=== PATIENT | male | born 1990 | race Caucasian/White ===

== ENCOUNTER 2017-10-26 03:46 | Inpatient (IN) | payer OTHER, BC ==
[2017-10-26] VITALS (18 sets, daily range): BP systolic 105–140; BP diastolic 59–79; PULSE 76–111; RESP 16–26; TEMP 98–100.9; O2SAT 97–100
[~2017-10-26] VITALS: Ht 177.8 cm; Wt 76.2 kg
[2017-10-26] MEDS ORDERED: MIDAZOLAM 100 MG/100 ML INJ 100 ML ONE (03:56)
[2017-10-26] MEDS ORDERED: fentaNYL DRIP 250 ML ONE (03:57)
[2017-10-26] MEDS ORDERED: ROCURONIUM INJ 50 MG/5 ML VIAL ONE (04:04)
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
[2017-10-26 04:19] LABS: AUTOMATED NEUTROPHIL # 5.4 TH/MM3 (1.8-7.7); BASOPHIL % 0.3 % (0.0-2.0); EOSINOPHIL % 0.4 % (0.0-4.0); HEMATOCRIT 41.7 % (39.0-51.0); LYMPH % 46.2 % (9.0-44.0); LYMPHOCYTE # 5.4 TH/MM3 (1.0-4.8); MEAN CELL VOLUME 87.9 FL (80.0-100.0); MEAN CORPUSCULAR HEMOGLOBIN 29.5 PG (27.0-34.0); MEAN CORPUSCULAR HGB CONC 33.6 % (32.0-36.0); MEAN PLATELET VOLUME 7.4 FL (7.0-11.0); MONO % 7.4 % (0.0-8.0); MONOCYTE # 0.9 TH/MM3 (0-0.9); NEUT % 45.7 % (16.0-70.0); PLATELET COUNT 281 TH/MM3 (150-450); RED BLOOD COUNT 4.75 MIL/MM3 (4.50-5.90); RED CELL DISTRIBUTION WIDTH 13.3 % (11.6-17.2); WHITE BLOOD COUNT 11.8 TH/MM3 (4.0-11.0)
[2017-10-26 04:29] LABS: INTERNATIONAL NORMALIZED RATIO 1.1 RATIO; PROTHROMBIN TIME - PATIENT 11.3 SEC (9.8-11.6)
[2017-10-26] MEDS ORDERED: IOHEXOL 350 MG/ML 10 ML VIAL (for RAD DIAG) IVCONTRAST ONE (04:36)
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
[2017-10-26] MEDS ORDERED: PROPOFOL 500 MG/50 ML INJ 50 ML ONE (05:14)
[2017-10-26] MEDS: SODIUM CHLOR 0.9% 1000 ML INJ 1,000 ML IV SCH ×3 (05:17→20:55)
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
[2017-10-26] MEDS ORDERED: SENNOSIDES 8.6 MG TAB PO PRN (05:30)
[2017-10-26] MEDS ORDERED: LACTULOSE SYRUP 20 GM/30 ML CUP PO PRN (05:30)
[2017-10-26] MEDS ORDERED: PROPOFOL 1000 MG/100 ML INJ 100 ML IV PRN (05:30)
[2017-10-26] MEDS ORDERED: CHLORHEXIDINE GLUCONATE 2 % 1 PACK (2 CLOTHS) TOP PRN (05:30)
[2017-10-26] MEDS ORDERED: MISCELLANEOUS NURSING INFORMATION XX SCH (05:30)
[2017-10-26] MEDS ORDERED: [UNRECOGNIZED DRUG - REMARK] SCH (05:30)
[2017-10-26] MEDS ORDERED: BISACODYL 10 MG SUPP RECTAL PRN (05:30)
[2017-10-26] MEDS ORDERED: MAGNESIUM HYDROXIDE SUSP 30 ML CUP PO PRN (05:30)
[2017-10-26] MEDS ORDERED: fentaNYL DRIP 250 ML IV PRN (05:30)
[2017-10-26 05:32] LABS: BANDS 2 % (0-6); BASOPHILS 1 % (0-2); LYMPHOCYTES 47 % (9-44); METAMYELOCYTES 2 % (0-1); MONOCYTES 6 % (0-8); NEUTROPHIL # MANUAL DIFF 5.4 TH/MM3 (1.8-7.7); POLYS (SEG NEUTROPHILS) 42 % (16-70)
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
[2017-10-26] MEDS: PROPOFOL 1000 MG/100 ML IV PRN ×2 (05:46→22:13)
[2017-10-26] MEDS: fentaNYL 2,500 MCG/NS 250 ML IV PRN ×3 (05:46→23:14)
[2017-10-26] MEDS ORDERED: POTASSIUM CHLORIDE 20 MEQ PWD PACKET PO PRN (06:30)
[2017-10-26] MEDS ORDERED: POTASSIUM PHOSPHATE MONOBASIC 500 MG TAB PO PRN (06:30)
[2017-10-26] MEDS ORDERED: MAGNESIUM OXIDE 400 MG TAB PO PRN (06:30)
[2017-10-26] MEDS ORDERED: MAGNESIUM SULFATE INJ 2 GM in SODIUM CHLORIDE 0.9% INJ 96 ML IV PRN (06:30)
[2017-10-26] MEDS ORDERED: SODIUM PHOSPHATE INJ 30 MMOL in SODIUM CHLOR 0.9% 250 ML INJ 240 ML IV PRN (06:30)
[2017-10-26] MEDS ORDERED: POTASSIUM PHOSPHATE MONOBASIC 500 MG TAB PO/TUBE PRN (06:30)
[2017-10-26] MEDS ORDERED: POTASSIUM CHLOR 20 MEQ PREMIX 100 ML IV PRN ×2 (06:30)
[2017-10-26] MEDS ORDERED: MAGNESIUM SULFATE INJ 4 GM in SODIUM CHLORIDE 0.9% INJ 92 ML IV PRN (06:30)
[2017-10-26] MEDS ORDERED: POTASSIUM CHLOR 40 MEQ PREMIX 100 ML IV PRN ×2 (06:30)
[2017-10-26] MEDS ORDERED: POTASSIUM PHOSPHATE INJ 30 MMOL in SODIUM CHLOR 0.9% 250 ML INJ 250 ML IV PRN (06:30)
--- NOTE | 2017-10-26 06:43 | RADRPT ---
EXAM DATE/TIME: 10/26/2017 04:36 [facility] COMPARISON: CHEST SINGLE AP, October 26, 2017, 3:49. INDICATIONS : Status post chest tube left side. MEDICAL HISTORY : None. SURGICAL HISTORY : None. ENCOUNTER: Initial ACUITY: 1 day PAIN SCORE: Non-responsive. LOCATION: Left chest FINDINGS: A single view of the chest demonstrates diffuse airspace disease probably representing pulmonary pare nchymal contusions, most prominent in the apices. Bilateral thoracostomy tubes with no obvious pneumo thorax. Deep tissue emphysematous changes about both hemithoraces. Left-sided rib fractures are again noted. I'd size is normal. Endotracheal tube appropriately positioned above the soraya with interval placement of a nasogastric tube which traverses the GE junction and the tip projects over the expect ed location of the gastric lumen. CONCLUSION: 1. Bilateral thoracostomy tubes without pneumothorax. 2. Bilateral pulmonary parenchymal airspace disease, most prominent in the apices probably representi ng pulmonary parenchymal contusion or aspiration. 3. Left-sided rib fractures. Tolu Bashir MD on October 26, 2017 at 6:40 Board Certified Radiologist. This report was verified electronically.
[2017-10-26] MEDS ORDERED: RESP: ALBUTEROL 2.5 MG/IPRATROPIUM 0.5 MG NEB (PRN) NEB (06:45)
[2017-10-26] MEDS: DOCUSATE SODIUM 50 MG/SENNA 8.6 MG TAB PO SCH ×2 (08:27→21:40)
[2017-10-26] MEDS: CHLORHEXIDINE 0.12% (ORAL KIT) 15 ML CUP MT SCH ×2 (08:27→20:55)
[2017-10-26] MEDS: FAMOTIDINE 20 MG/2 ML VIAL IV PUSH SCH ×2 (08:28→21:40)
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
[2017-10-26] MEDS: RESP: ALBUTEROL 2.5 MG/IPRATROPIUM 0.5 MG NEB (SCH) NEB ×3 (08:50→19:49)
[2017-10-26 11:04] LABS: MAGNESIUM 1.9 MG/DL (1.5-2.5); PHOSPHORUS 3.8 MG/DL (2.5-4.9)
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
[2017-10-26] MEDS: ACETAMINOPHEN 325 MG TAB PO PRN ×2 (16:45→23:13)
[2017-10-26] MEDS: CHLORHEXIDINE GLUCONATE 2 % 1 PACK (2 CLOTHS) TOP SCH (20:55)
[2017-10-27] VITALS (17 sets, daily range): BP systolic 120–137; BP diastolic 60–75; PULSE 76–125; RESP 14–18; TEMP 98.6–101.1; O2SAT 95–100
[2017-10-27] MEDS: RESP: ALBUTEROL 2.5 MG/IPRATROPIUM 0.5 MG NEB (SCH) NEB ×4 (02:59→20:33)
[2017-10-27 04:35] LABS: AUTOMATED NEUTROPHIL # 7.7 TH/MM3 (1.8-7.7); BASOPHIL % 0.2 % (0.0-2.0); EOSINOPHIL % 0.1 % (0.0-4.0); HEMATOCRIT 34.2 % (39.0-51.0); HEMOGLOBIN 11.5 GM/DL (13.0-17.0); LYMPH % 17.7 % (9.0-44.0); LYMPHOCYTE # 1.9 TH/MM3 (1.0-4.8); MEAN CELL VOLUME 88.1 FL (80.0-100.0); MEAN CORPUSCULAR HEMOGLOBIN 29.6 PG (27.0-34.0); MEAN CORPUSCULAR HGB CONC 33.6 % (32.0-36.0); MEAN PLATELET VOLUME 7.9 FL (7.0-11.0); MONO % 10.6 % (0.0-8.0); MONOCYTE # 1.1 TH/MM3 (0-0.9); NEUT % 71.4 % (16.0-70.0); PLATELET COUNT 172 TH/MM3 (150-450); RED BLOOD COUNT 3.88 MIL/MM3 (4.50-5.90); RED CELL DISTRIBUTION WIDTH 13.3 % (11.6-17.2); WHITE BLOOD COUNT 10.8 TH/MM3 (4.0-11.0)
--- NOTE | 2017-10-27 04:44 | RADRPT ---
EXAM DATE/TIME: 10/27/2017 02:23 [facility] COMPARISON: CHEST SINGLE AP, October 26, 2017, 4:36. INDICATIONS : Short of breath. MEDICAL HISTORY : None. SURGICAL HISTORY : None. ENCOUNTER: Subsequent ACUITY: 1 week PAIN SCORE: 0/10 LOCATION: Bilateral chest FINDINGS: ET tube tip well above the soraya. Gastric tube tip projects within the stomach. Bilateral chest tu be stable position. Interval resolution of patchy infiltrates in the left upper lung. There is a ne w segmental area of consolidation in the left lower lung. The right lung is clear. CONCLUSION: Resolved left upper lobe infiltrates. No left lower lobe consolidation. Madan De Luna MD on October 27, 2017 at 4:40 Board Certified Radiologist. This report was verified electronically.
[2017-10-27 04:59] LABS: BICARBONATE 25.8 MEQ/L (21.0-32.0); CALCIUM 8.2 MG/DL (8.5-10.1); CREATININE 1.04 MG/DL (0.60-1.30)
[2017-10-27] MEDS: PROPOFOL 1000 MG/100 ML IV PRN (06:28)
[2017-10-27] MEDS: SODIUM CHLOR 0.9% 1000 ML INJ 1,000 ML IV SCH (06:31)
[2017-10-27] MEDS: FAMOTIDINE 20 MG/2 ML VIAL IV PUSH SCH ×2 (09:44→20:23)
[2017-10-27] MEDS: DOCUSATE SODIUM 50 MG/SENNA 8.6 MG TAB PO SCH ×2 (09:44→22:05)
[2017-10-27] MEDS: CHLORHEXIDINE 0.12% (ORAL KIT) 15 ML CUP MT SCH (09:45)
[2017-10-27] MEDS ORDERED: oxyCODONE/ACETAMINOPHEN 5 MG/325 MG TAB PO PRN (10:45)
[2017-10-27] MEDS: LIDOCAINE HCL 5% PATCH T-DERMAL SCH (11:25)
[2017-10-27] MEDS: oxyCODONE/ACETAMINOPHEN 10 MG/325 MG TAB PO PRN ×3 (11:25→22:05)
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
[2017-10-27] MEDS: MORPHINE SULFATE 2 MG/ML INJ IV PUSH PRN ×3 (11:58→20:23)
[2017-10-27] MEDS: METHOCARBAMOL 500 MG TAB PO SCH ×2 (13:44→22:05)
[2017-10-27] MEDS: ENOXAPARIN SODIUM 40 MG/0.4 ML SYRINGE SQ SCH (13:44)
[2017-10-27] MEDS: CALCIUM CARBONATE 500 MG CHEWABLE TAB PO PRN (18:25)
--- NOTE | 2017-10-27 21:16 | EKG ---
Date Performed: 10/27/2017 Time Performed: 02:37:10 PTAGE: 26 years EKG: CONSIDER ACUTE ST ELEVATION [place] Sinus rhythm . Short IN interval Lateral ST elevation, CONSIDER ACUTE INFARCT Inferior T wave changes are nonspeci fic Abnormal ECG NO PREVIOUS TRACING DOCTOR: Mckenzie Encinas Interpretating Date/Time 10/27/2017 21:14:35
[2017-10-28] VITALS (10 sets, daily range): BP systolic 125–150; BP diastolic 69–75; PULSE 88–108; RESP 14–18; TEMP 96.7–99.7; O2SAT 92–97
[2017-10-28] MEDS: MORPHINE SULFATE 2 MG/ML INJ IV PUSH PRN ×5 (00:11→22:38)
[2017-10-28] MEDS: oxyCODONE/ACETAMINOPHEN 10 MG/325 MG TAB PO PRN ×2 (02:21→05:57)
[2017-10-28] MEDS: RESP: ALBUTEROL 2.5 MG/IPRATROPIUM 0.5 MG NEB (SCH) NEB ×3 (02:44→17:10)
[2017-10-28] MEDS: CHLORHEXIDINE GLUCONATE 2 % 1 PACK (2 CLOTHS) TOP SCH (04:00)
[2017-10-28 04:39] LABS: AUTOMATED NEUTROPHIL # 6.4 TH/MM3 (1.8-7.7); BASOPHIL % 0.2 % (0.0-2.0); EOSINOPHIL % 0.1 % (0.0-4.0); HEMATOCRIT 31.6 % (39.0-51.0); HEMOGLOBIN 10.7 GM/DL (13.0-17.0); LYMPH % 15.8 % (9.0-44.0); LYMPHOCYTE # 1.4 TH/MM3 (1.0-4.8); MEAN CELL VOLUME 86.8 FL (80.0-100.0); MEAN CORPUSCULAR HEMOGLOBIN 29.4 PG (27.0-34.0); MEAN CORPUSCULAR HGB CONC 33.8 % (32.0-36.0); MEAN PLATELET VOLUME 7.5 FL (7.0-11.0); MONO % 9.3 % (0.0-8.0); MONOCYTE # 0.8 TH/MM3 (0-0.9); NEUT % 74.6 % (16.0-70.0); PLATELET COUNT 159 TH/MM3 (150-450); RED BLOOD COUNT 3.65 MIL/MM3 (4.50-5.90); RED CELL DISTRIBUTION WIDTH 13.2 % (11.6-17.2); WHITE BLOOD COUNT 8.6 TH/MM3 (4.0-11.0)
[2017-10-28] MEDS: METHOCARBAMOL 500 MG TAB PO SCH ×3 (05:05→19:59)
[2017-10-28 05:09] LABS: ALBUMIN 2.8 GM/DL (3.4-5.0); ALKALINE PHOSPHATASE 35 U/L (45-117); ALT (GPT) 40 U/L (12-78); AST (GOT) 79 U/L (15-37); BICARBONATE 27.1 MEQ/L (21.0-32.0); BLOOD UREA NITROGEN 6 MG/DL (7-18); CALCIUM 8.1 MG/DL (8.5-10.1); CHLORIDE 105 MEQ/L (98-107); CREATININE 0.84 MG/DL (0.60-1.30); GLOMERULAR FILTRATION RATE 110 ML/MIN (>89); GLUCOSE,RANDOM 118 MG/DL (74-106); SODIUM (NA) 139 MEQ/L (136-145); TOTAL BILIRUBIN ADULT 1.2 MG/DL (0.2-1.0); TOTAL PROTEIN 6.2 GM/DL (6.4-8.2)
--- NOTE | 2017-10-28 06:36 | RADRPT ---
EXAM DATE/TIME: 10/28/2017 04:27 [facility] COMPARISON: CHEST SINGLE AP, October 27, 2017, 2:23. INDICATIONS : Follow up trauma. Short of breath. MEDICAL HISTORY : None. SURGICAL HISTORY : None. ENCOUNTER: Subsequent ACUITY: 3 days PAIN SCORE: Non-responsive. LOCATION: Bilateral chest FINDINGS: Interval extubation and removal of gastric tube. Bilateral chest drainage tubes stable in position. No evidence pneumothorax. Patchy areas of consolidation left mid and lower lung had increased in si ze when compared to prior. There is also thickening of the apical pleura suggesting layering pleural effusion. Multiple left rib fractures. CONCLUSION: Increasing consolidation in the left mid and lower lung. Probable pleural effusion layering up to th e left pulmonary apex. No evidence of pneumothorax. Madan De Luna MD on October 28, 2017 at 6:33 Board Certified Radiologist. This report was verified electronically.
[2017-10-28] MEDS: ACETAMINOPHEN 1000 MG/100 ML 100 ML IV SCH ×3 (08:18→19:59)
[2017-10-28] MEDS: DOCUSATE SODIUM 50 MG/SENNA 8.6 MG TAB PO SCH ×2 (08:19→19:59)
[2017-10-28] MEDS: FAMOTIDINE 20 MG/2 ML VIAL IV PUSH SCH ×2 (08:19→19:59)
[2017-10-28] MEDS: fentaNYL 50 MCG/HR PATCH T-DERMAL SCH (08:19)
[2017-10-28] MEDS: LIDOCAINE HCL 5% PATCH T-DERMAL SCH (09:38)
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
[2017-10-28] MEDS: ENOXAPARIN SODIUM 40 MG/0.4 ML SYRINGE SQ SCH (12:20)
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
[2017-10-28] MEDS: SODIUM CHLOR 0.9% 1000 ML INJ 1,000 ML IV SCH (20:06)
[2017-10-29] VITALS (7 sets, daily range): BP systolic 125–137; BP diastolic 59–77; PULSE 86–96; RESP 16–18; TEMP 97.7–98.7; O2SAT 93–98
[2017-10-29] MEDS: RESP: ALBUTEROL 2.5 MG/IPRATROPIUM 0.5 MG NEB (SCH) NEB ×3 (00:24→20:49)
[2017-10-29] MEDS: ACETAMINOPHEN 1000 MG/100 ML 100 ML IV SCH (00:37)
[2017-10-29] MEDS: SODIUM CHLOR 0.9% 1000 ML INJ 1,000 ML IV SCH (03:17)
[2017-10-29] MEDS: MORPHINE SULFATE 2 MG/ML INJ IV PUSH PRN ×6 (03:26→22:02)
[2017-10-29] MEDS: CHLORHEXIDINE GLUCONATE 2 % 1 PACK (2 CLOTHS) TOP SCH (04:00)
[2017-10-29] MEDS: METHOCARBAMOL 500 MG TAB PO SCH ×3 (05:45→20:23)
--- NOTE | 2017-10-29 06:07 | RADRPT ---
EXAM DATE/TIME: 10/29/2017 04:57 [facility] COMPARISON: CHEST SINGLE AP, October 28, 2017, 4:27. INDICATIONS : Short of breath. MEDICAL HISTORY : None. SURGICAL HISTORY : None. ENCOUNTER: Subsequent ACUITY: 4 - 6 days PAIN SCORE: 0/10 LOCATION: Bilateral chest FINDINGS: Bilateral chest tubes remain projected at the apices. The right lung is clear. Prominent consolidat ion in the left mid and lower lung and local pleural thickening on the left side, stable from prior. No pneumothorax seen on either side. CONCLUSION: Persistent left mid and lower lung consolidation. Bilateral chest tubes stable in position. Madan De Luna MD on October 29, 2017 at 6:04 Board Certified Radiologist. This report was verified electronically.
[2017-10-29] MEDS: LIDOCAINE HCL 5% PATCH T-DERMAL SCH (07:35)
[2017-10-29] MEDS: DOCUSATE SODIUM 50 MG/SENNA 8.6 MG TAB PO SCH ×2 (07:35→20:23)
[2017-10-29] MEDS: ENOXAPARIN SODIUM 40 MG/0.4 ML SYRINGE SQ SCH (11:09)
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
[2017-10-30] VITALS (7 sets, daily range): BP systolic 119–140; BP diastolic 56–74; PULSE 76–96; RESP 17–19; TEMP 97.9–99.1; O2SAT 92–99
[2017-10-30] MEDS: MORPHINE SULFATE 2 MG/ML INJ IV PUSH PRN ×6 (00:48→19:49)
[2017-10-30] MEDS: CHLORHEXIDINE GLUCONATE 2 % 1 PACK (2 CLOTHS) TOP SCH (04:00)
[2017-10-30] MEDS: RESP: ALBUTEROL 2.5 MG/IPRATROPIUM 0.5 MG NEB (SCH) NEB ×2 (04:27→09:29)
[2017-10-30 04:52] LABS: AUTOMATED NEUTROPHIL # 5.9 TH/MM3 (1.8-7.7); BASOPHIL % 0.3 % (0.0-2.0); EOSINOPHIL # 0.1 TH/MM3 (0-0.4); EOSINOPHIL % 0.8 % (0.0-4.0); HEMATOCRIT 33.4 % (39.0-51.0); HEMOGLOBIN 11.5 GM/DL (13.0-17.0); LYMPH % 20.3 % (9.0-44.0); LYMPHOCYTE # 1.7 TH/MM3 (1.0-4.8); MEAN CELL VOLUME 87.5 FL (80.0-100.0); MEAN CORPUSCULAR HEMOGLOBIN 30.2 PG (27.0-34.0); MEAN CORPUSCULAR HGB CONC 34.5 % (32.0-36.0); MEAN PLATELET VOLUME 7.4 FL (7.0-11.0); MONO % 9.1 % (0.0-8.0); MONOCYTE # 0.8 TH/MM3 (0-0.9); NEUT % 69.5 % (16.0-70.0); PLATELET COUNT 205 TH/MM3 (150-450); RED BLOOD COUNT 3.82 MIL/MM3 (4.50-5.90); RED CELL DISTRIBUTION WIDTH 13.1 % (11.6-17.2); WHITE BLOOD COUNT 8.4 TH/MM3 (4.0-11.0)
[2017-10-30 05:14] LABS: CALCIUM 8.4 MG/DL (8.5-10.1); CREATININE 0.74 MG/DL (0.60-1.30)
[2017-10-30] MEDS: METHOCARBAMOL 500 MG TAB PO SCH ×3 (06:09→19:48)
--- NOTE | 2017-10-30 07:14 | RADRPT ---
EXAM DATE/TIME: 10/30/2017 05:59 [facility] COMPARISON: CHEST SINGLE AP, October 29, 2017, 4:57. CT THORAX W CONTRAST, October 26, 2017, 4:14. INDICATIONS : Chest pain, short of breath, evaluate bilateral chest tubes MEDICAL HISTORY : None. SURGICAL HISTORY : bilateral chest tubes ENCOUNTER: Subsequent ACUITY: 3 days PAIN SCORE: 10/10 LOCATION: Bilateral chest FINDINGS: Portable upright expiratory view of the chest demonstrates a normal-sized cardiac silhouette. Large b ore bilateral chest tubes remain present in the apices of the hemithoraces. There is a small left api [place] pneumothorax. No right pneumothorax is seen. There is mild patchy airspace opacity in the right m id and lower lung zone. There is moderate to severe opacity in the left mid and lower lung zone. Ther e are stable left rib fractures. CONCLUSION: 1. There is a small left pneumothorax with left chest tube in place. 2. Right chest tube is present and no pneumothorax is seen. 3. Bilateral lower lung zone airspace consolidation, left much greater than right. This finding is st able. Cole Alonso MD on October 30, 2017 at 7:10 Board Certified Radiologist. This report was verified electronically.
[2017-10-30] MEDS: KETOROLAC TROMETHAMINE 30 MG/ML (IVP) VIAL IV PUSH SCH ×3 (08:11→21:19)
[2017-10-30] MEDS: DOCUSATE SODIUM 50 MG/SENNA 8.6 MG TAB PO SCH ×2 (08:11→19:49)
[2017-10-30] MEDS: LIDOCAINE HCL 5% PATCH T-DERMAL SCH (08:11)
[2017-10-30] MEDS: ENOXAPARIN SODIUM 30 MG/0.3 ML SYRINGE SQ SCH ×2 (08:12→19:50)
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
[2017-10-30] MEDS ORDERED: LACTULOSE SYRUP 20 GM/30 ML CUP PO ONE (19:45)
[2017-10-30] MEDS: traZODone HCL 100 MG TAB PO SCH (19:49)
[2017-10-31] VITALS (7 sets, daily range): BP systolic 117–138; BP diastolic 58–61; PULSE 78–86; RESP 17–18; TEMP 96.8–99.4; O2SAT 93–98
[2017-10-31] MEDS: MORPHINE SULFATE 2 MG/ML INJ IV PUSH PRN ×6 (00:19→23:48)
[2017-10-31] MEDS: KETOROLAC TROMETHAMINE 30 MG/ML (IVP) VIAL IV PUSH SCH ×4 (03:08→20:16)
[2017-10-31] MEDS: CHLORHEXIDINE GLUCONATE 2 % 1 PACK (2 CLOTHS) TOP SCH (03:09)
[2017-10-31] MEDS: METHOCARBAMOL 500 MG TAB PO SCH ×3 (05:29→22:01)
--- NOTE | 2017-10-31 07:03 | RADRPT ---
EXAM DATE/TIME: 10/31/2017 06:08 [facility] COMPARISON: CHEST SINGLE AP, October 30, 2017, 5:59. INDICATIONS : Short of breath, post chest tube removal right side MEDICAL HISTORY : pneumothorax SURGICAL HISTORY : chest tube ENCOUNTER: Subsequent ACUITY: 4 - 6 days PAIN SCORE: 9/10 LOCATION: Bilateral chest FINDINGS: Single AP erect expiratory view of the pelvis the chest was obtained and demonstrates interval remova l of the previously noted right-sided chest tube. There is a small right apical pneumothorax. This me asures 6 mm in size. The left-sided chest tube remains in place. The left apical pneumothorax has dec reased in size and now measures approximately 1.2 cm. There is hazy opacity remaining in the left eddi g. The heart size is mildly prominent. The bony thorax is intact. CONCLUSION: 1. Interval removal of right-sided chest tube a small right apical pneumothorax now identified. 2. Left-sided chest tube remains in place with interval decrease in the size of the left pneumothorax with small apical residual. 3. Hazy opacity remains in the left lung. Virgilio Rivera MD on October 31, 2017 at 6:58 Board Certified Radiologist. This report was verified electronically.
[2017-10-31] MEDS: REMOVE OLD DURAGESIC (FENTANYL) PATCH T-DERMAL SCH (08:00)
[2017-10-31] MEDS: DOCUSATE SODIUM 50 MG/SENNA 8.6 MG TAB PO SCH ×2 (09:42→20:12)
[2017-10-31] MEDS: ENOXAPARIN SODIUM 30 MG/0.3 ML SYRINGE SQ SCH ×2 (09:43→20:12)
[2017-10-31] MEDS: LIDOCAINE HCL 5% PATCH T-DERMAL SCH (09:58)
[2017-10-31] MEDS: fentaNYL 50 MCG/HR PATCH T-DERMAL SCH (09:59)
--- NOTE | 2017-10-31 14:44 | RADRPT ---
EXAM DATE/TIME: 10/31/2017 14:09 [facility] COMPARISON: CHEST SINGLE AP, October 31, 2017, 6:08. INDICATIONS : Evaluate for pneumothorax. MEDICAL HISTORY : pneumothorax or SURGICAL HISTORY : chest tube ENCOUNTER: Subsequent ACUITY: 4 - 6 days PAIN SCORE: 8/10 LOCATION: Bilateral chest FINDINGS: Large bore chest tube on the left. Minimal consolidative changes left base. No residual pneumothora x on the right. CONCLUSION: No residual pneumothorax Michael Miller MD FACR on October 31, 2017 at 14:40 Board Certified Radiologist. This report was verified electronically.
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
[2017-10-31] MEDS: traZODone HCL 100 MG TAB PO SCH (20:12)
[2017-11-01] MEDS: CHLORHEXIDINE GLUCONATE 2 % 1 PACK (2 CLOTHS) TOP SCH (02:23)
[2017-11-01] MEDS: KETOROLAC TROMETHAMINE 30 MG/ML (IVP) VIAL IV PUSH SCH ×4 (02:23→19:50)
[2017-11-01 04:00] VITALS: BP 124/52; PULSE 82; RESP 18; TEMP 98; O2SAT 94
[2017-11-01] MEDS: METHOCARBAMOL 500 MG TAB PO SCH ×3 (06:42→22:50)
[2017-11-01 08:00] VITALS: BP 124/69; PULSE 74; RESP 16; TEMP 97.9; O2SAT 96
[2017-11-01] MEDS: DOCUSATE SODIUM 50 MG/SENNA 8.6 MG TAB PO SCH ×2 (09:00→19:50)
[2017-11-01] MEDS: ENOXAPARIN SODIUM 30 MG/0.3 ML SYRINGE SQ SCH ×2 (09:24→19:50)
[2017-11-01] MEDS: LIDOCAINE HCL 5% PATCH T-DERMAL SCH (09:25)
[2017-11-01 12:00] VITALS: BP 124/57; PULSE 88; RESP 16; TEMP 97.5; O2SAT 92
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
[2017-11-01 16:00] VITALS: BP 131/56; PULSE 83; RESP 16; TEMP 98.2; O2SAT 92
[2017-11-01] MEDS: traZODone HCL 100 MG TAB PO SCH (19:50)
[2017-11-01 20:00] VITALS: BP 123/57; PULSE 87; RESP 18; TEMP 99; O2SAT 92
[2017-11-02 00:18] VITALS: BP 113/56; PULSE 83; RESP 18; TEMP 98.2; O2SAT 96
[2017-11-02] MEDS: KETOROLAC TROMETHAMINE 30 MG/ML (IVP) VIAL IV PUSH SCH ×4 (02:00→19:32)
[2017-11-02] MEDS: CHLORHEXIDINE GLUCONATE 2 % 1 PACK (2 CLOTHS) TOP SCH (03:28)
[2017-11-02] MEDS: METHOCARBAMOL 500 MG TAB PO SCH ×3 (04:25→22:30)
--- NOTE | 2017-11-02 04:50 | RADRPT ---
EXAM DATE/TIME: 11/02/2017 04:15 [facility] COMPARISON: CHEST SINGLE AP, October 31, 2017, 14:09. INDICATIONS : Followup recent left pneumothorax. Patient has a chest tube.. MEDICAL HISTORY : None. SURGICAL HISTORY : None. ENCOUNTER: Subsequent ACUITY: 1 week PAIN SCORE: 7/10 LOCATION: Left chest FINDINGS: A single AP semierect view of the chest was obtained and again demonstrates the left-sided chest tube in place. There is a small left apical pneumothorax now present measuring up to approximately 9 mm i n height. Abnormal opacity remains in the left perihilar region and left lung base. There are multipl e left rib fractures. The heart size is mildly prominent. CONCLUSION: 1. There is a small left apical pneumothorax now identified measuring 9 mm. 2. The left-sided chest tube remains in place and there is abnormal opacity in the left perihilar reg ion left lung base without change. Virgilio Rivera MD on November 02, 2017 at 4:46 Board Certified Radiologist. This report was verified electronically.
[2017-11-02] MEDS ORDERED: MAGN30S PO (07:55)
[2017-11-02 08:00] VITALS: BP 109/61; PULSE 76; RESP 16; TEMP 98.1; O2SAT 95
[2017-11-02] MEDS: DOCUSATE SODIUM 50 MG/SENNA 8.6 MG TAB PO SCH ×2 (08:45→19:32)
[2017-11-02] MEDS: ENOXAPARIN SODIUM 30 MG/0.3 ML SYRINGE SQ SCH ×2 (08:46→19:31)
[2017-11-02] MEDS: LIDOCAINE HCL 5% PATCH T-DERMAL SCH (08:47)
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
[2017-11-02 12:00] VITALS: BP 120/58; PULSE 83; RESP 16; TEMP 98.3; O2SAT 95
[2017-11-02 16:00] VITALS: BP 125/56; PULSE 78; RESP 16; TEMP 98.5; O2SAT 98
[2017-11-02] MEDS: MORPHINE SULFATE 2 MG/ML INJ IV PUSH PRN ×2 (19:11→23:49)
[2017-11-02] MEDS: traZODone HCL 100 MG TAB PO SCH (19:31)
[2017-11-02 20:00] VITALS: BP 119/59; PULSE 82; RESP 18; TEMP 99.2; O2SAT 96
[2017-11-03] VITALS: BP 116/56; PULSE 69; RESP 18; TEMP 98.3; O2SAT 97
[2017-11-03] MEDS: KETOROLAC TROMETHAMINE 30 MG/ML (IVP) VIAL IV PUSH SCH ×4 (02:00→21:50)
[2017-11-03 03:46] LABS: AUTOMATED NEUTROPHIL # 4.3 TH/MM3 (1.8-7.7); BASOPHIL % 0.4 % (0.0-2.0); EOSINOPHIL # 0.3 TH/MM3 (0-0.4); EOSINOPHIL % 3.4 % (0.0-4.0); HEMATOCRIT 35.2 % (39.0-51.0); HEMOGLOBIN 11.9 GM/DL (13.0-17.0); LYMPH % 30.3 % (9.0-44.0); LYMPHOCYTE # 2.6 TH/MM3 (1.0-4.8); MEAN CELL VOLUME 86.1 FL (80.0-100.0); MEAN CORPUSCULAR HEMOGLOBIN 29.2 PG (27.0-34.0); MEAN CORPUSCULAR HGB CONC 33.9 % (32.0-36.0); MEAN PLATELET VOLUME 6.9 FL (7.0-11.0); MONO % 14.5 % (0.0-8.0); MONOCYTE # 1.2 TH/MM3 (0-0.9); NEUT % 51.4 % (16.0-70.0); PLATELET COUNT 392 TH/MM3 (150-450); RED BLOOD COUNT 4.09 MIL/MM3 (4.50-5.90); RED CELL DISTRIBUTION WIDTH 13.1 % (11.6-17.2); WHITE BLOOD COUNT 8.4 TH/MM3 (4.0-11.0)
[2017-11-03 04:33] LABS: BICARBONATE 29.6 MEQ/L (21.0-32.0); CALCIUM 8.6 MG/DL (8.5-10.1); CREATININE 1.03 MG/DL (0.60-1.30)
[2017-11-03] MEDS: METHOCARBAMOL 500 MG TAB PO SCH ×3 (04:57→21:49)
[2017-11-03] MEDS: MORPHINE SULFATE 2 MG/ML INJ IV PUSH PRN ×5 (05:59→23:42)
--- NOTE | 2017-11-03 06:29 | RADRPT ---
EXAM DATE/TIME: 11/03/2017 05:28 [facility] COMPARISON: CHEST SINGLE AP, November 02, 2017, 4:15. INDICATIONS : Pain left chest, evaluate left pneumothorax and chest tube MEDICAL HISTORY : pneumothorax SURGICAL HISTORY : chest tube ENCOUNTER: Subsequent ACUITY: 1 week PAIN SCORE: 7/10 LOCATION: Left chest FINDINGS: A single view of the chest demonstrates left-sided pleural-parenchymal density. No pneumothorax. Left -sided chest tube stable in position.. Osseous structures are intact. CONCLUSION: 1. Left-sided pleural-parenchymal density. 2. No pneumothorax on current study. Keith Mendez MD on November 03, 2017 at 6:25 Board Certified Radiologist. This report was verified electronically.
[2017-11-03 08:00] VITALS: BP 115/63; PULSE 73; RESP 18; TEMP 98.1; O2SAT 98
[2017-11-03] MEDS: REMOVE OLD DURAGESIC (FENTANYL) PATCH T-DERMAL SCH (08:00)
[2017-11-03] MEDS: LIDOCAINE HCL 5% PATCH T-DERMAL SCH (08:54)
[2017-11-03] MEDS: fentaNYL 50 MCG/HR PATCH T-DERMAL SCH (08:55)
[2017-11-03] MEDS: DOCUSATE SODIUM 50 MG/SENNA 8.6 MG TAB PO SCH ×2 (08:55→21:50)
[2017-11-03] MEDS: ENOXAPARIN SODIUM 30 MG/0.3 ML SYRINGE SQ SCH ×2 (08:56→21:50)
[2017-11-03 12:00] VITALS: BP 118/59; PULSE 78; RESP 18; TEMP 97.8; O2SAT 97
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
[2017-11-03 16:00] VITALS: BP 109/61; PULSE 76; RESP 18; TEMP 97.8; O2SAT 97
[2017-11-03 20:00] VITALS: BP 115/61; PULSE 77; RESP 18; TEMP 98.4; O2SAT 96
[2017-11-03] MEDS: traZODone HCL 100 MG TAB PO SCH (21:49)
[2017-11-04] VITALS (7 sets, daily range): BP systolic 103–120; BP diastolic 54–61; PULSE 68–89; RESP 18–20; TEMP 97.7–100.2; O2SAT 95–98
[2017-11-04] MEDS: KETOROLAC TROMETHAMINE 30 MG/ML (IVP) VIAL IV PUSH SCH (02:00)
[2017-11-04] MEDS: METHOCARBAMOL 500 MG TAB PO SCH ×3 (04:26→21:09)
[2017-11-04] MEDS: MORPHINE SULFATE 2 MG/ML INJ IV PUSH PRN ×5 (05:55→22:44)
--- NOTE | 2017-11-04 06:43 | RADRPT ---
EXAM DATE/TIME: 11/04/2017 05:47 [facility] COMPARISON: CHEST SINGLE AP, November 03, 2017, 5:28. INDICATIONS : Pain left chest, evaluate left pneumothorax and chest tube MEDICAL HISTORY : pneumothorax SURGICAL HISTORY : chest tube ENCOUNTER: Subsequent ACUITY: 1 week PAIN SCORE: 6/10 LOCATION: Left chest FINDINGS: A single view of the chest demonstrates large left-sided pneumothorax measuring 2.3 cm of pleural sep aration. Left-sided chest tube. Left basilar density. Osseous structures are intact. CONCLUSION: Interval development of large left-sided pneumothorax. Keith Mendez MD on November 04, 2017 at 6:39 Board Certified Radiologist. This report was verified electronically.
[2017-11-04] MEDS: DOCUSATE SODIUM 50 MG/SENNA 8.6 MG TAB PO SCH ×2 (09:09→21:09)
[2017-11-04] MEDS: LACTULOSE SYRUP 20 GM/30 ML CUP PO SCH (09:09)
[2017-11-04] MEDS: ENOXAPARIN SODIUM 30 MG/0.3 ML SYRINGE SQ SCH ×2 (09:11→21:12)
[2017-11-04] MEDS: LIDOCAINE HCL 5% PATCH T-DERMAL SCH (09:12)
--- NOTE | 2017-11-04 11:10 | RADRPT ---
EXAM DATE/TIME: 11/04/2017 10:26 [facility] COMPARISON: CHEST SINGLE AP, November 04, 2017, 5:47. INDICATIONS : Chest tube reconnected MEDICAL HISTORY : pneumothorax SURGICAL HISTORY : chest tube ENCOUNTER: Initial ACUITY: 1 week PAIN SCORE: 0/10 LOCATION: Bilateral chest FINDINGS: A single portable frontal view the chest shows interval placement of a left thoracostomy tube. No pne umothorax on the current study. Consolidation involving the left midlung and lower lobe. Right lung i s clear. Heart is at the upper limits of normal in terms of size. CONCLUSION: Resolution of left pneumothorax. Chest tube in good position. Persistent left lung consolidation. Madan Weir Jr., MD on November 04, 2017 at 11:04 Board Certified Radiologist. This report was verified electronically.
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
[2017-11-04] MEDS: GABAPENTIN 100 MG CAP PO SCH (16:47)
[2017-11-04] MEDS: MAGNESIUM HYDROXIDE SUSP 30 ML CUP PO SCH (16:47)
[2017-11-04] MEDS: traZODone HCL 100 MG TAB PO SCH (21:10)
[2017-11-05] VITALS (7 sets, daily range): BP systolic 107–125; BP diastolic 56–64; PULSE 59–90; RESP 14–22; TEMP 98.1–100.2; O2SAT 93–96
[2017-11-05] MEDS: METHOCARBAMOL 500 MG TAB PO SCH ×3 (04:11→21:47)
[2017-11-05] MEDS: MAGNESIUM HYDROXIDE SUSP 30 ML CUP PO SCH ×2 (04:11→17:19)
--- NOTE | 2017-11-05 06:26 | RADRPT ---
EXAM DATE/TIME: 11/05/2017 05:44 [facility] COMPARISON: CHEST SINGLE AP, November 04, 2017, 10:26. INDICATIONS : Shortness of breath. MEDICAL HISTORY : Pneumothorax SURGICAL HISTORY : Chest tube ENCOUNTER: Subsequent ACUITY: 1 week PAIN SCORE: 7/10 LOCATION: Bilateral chest FINDINGS: A single view of the chest demonstrates cardiomegaly and left basilar pleural-parenchymal density. Le ft-sided chest tube without pneumothorax. Left-sided rib fractures. CONCLUSION: 1. No left-sided pneumothorax. 2. Persistent pleural-parenchymal density left lung. Keith Mendez MD on November 05, 2017 at 6:24 Board Certified Radiologist. This report was verified electronically.
[2017-11-05] MEDS: MORPHINE SULFATE 2 MG/ML INJ IV PUSH PRN ×5 (06:40→23:06)
[2017-11-05] MEDS ORDERED: BISACODYL EC 5 MG TABEC PO ONE (08:30)
[2017-11-05] MEDS ORDERED: BISACODYL 10 MG SUPP RECTAL ONE (08:30)
[2017-11-05] MEDS: DOCUSATE SODIUM 50 MG/SENNA 8.6 MG TAB PO SCH ×2 (09:12→21:47)
[2017-11-05] MEDS: LACTULOSE SYRUP 20 GM/30 ML CUP PO SCH (09:12)
[2017-11-05] MEDS: GABAPENTIN 100 MG CAP PO SCH ×3 (09:12→17:18)
[2017-11-05] MEDS: ENOXAPARIN SODIUM 30 MG/0.3 ML SYRINGE SQ SCH ×2 (09:12→21:57)
[2017-11-05] MEDS: LIDOCAINE HCL 5% PATCH T-DERMAL SCH (09:13)
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
[2017-11-05] MEDS: traZODone HCL 100 MG TAB PO SCH (21:47)
[2017-11-06] VITALS: BP 103/56; PULSE 82; RESP 20; TEMP 99.8; O2SAT 96
[2017-11-06] MEDS: METHOCARBAMOL 500 MG TAB PO SCH ×3 (05:44→22:07)
[2017-11-06] MEDS: MAGNESIUM HYDROXIDE SUSP 30 ML CUP PO SCH ×2 (05:46→17:39)
--- NOTE | 2017-11-06 07:38 | RADRPT ---
EXAM DATE/TIME: 11/06/2017 06:25 [facility] COMPARISON: CHEST SINGLE AP, November 05, 2017, 5:44. INDICATIONS : Short of breath, evaluate pneumothorax and chest tube MEDICAL HISTORY : pneumothorax SURGICAL HISTORY : chest tube ENCOUNTER: Subsequent ACUITY: 1 week PAIN SCORE: 7/10 LOCATION: Bilateral chest FINDINGS: A single view of the chest demonstrates left chest tube without significant pneumothorax. Multiple le ft rib fractures with left basilar consolidation similar to November 05. CONCLUSION: 1. Multiple left rib fractures with left lung consolidation. Left chest tube without pneumothorax. Eladio Kelly MD on November 06, 2017 at 7:36 Board Certified Radiologist. This report was verified electronically.
[2017-11-06] MEDS: fentaNYL 50 MCG/HR PATCH T-DERMAL SCH (07:45)
[2017-11-06] MEDS: MORPHINE SULFATE 2 MG/ML INJ IV PUSH PRN ×4 (07:45→23:17)
[2017-11-06] MEDS: LIDOCAINE HCL 5% PATCH T-DERMAL SCH (07:48)
[2017-11-06] MEDS: GABAPENTIN 100 MG CAP PO SCH ×3 (07:49→18:05)
[2017-11-06] MEDS: DOCUSATE SODIUM 50 MG/SENNA 8.6 MG TAB PO SCH ×2 (07:49→21:00)
[2017-11-06] MEDS: REMOVE OLD DURAGESIC (FENTANYL) PATCH T-DERMAL SCH (07:49)
[2017-11-06] MEDS: ENOXAPARIN SODIUM 30 MG/0.3 ML SYRINGE SQ SCH ×2 (07:49→22:11)
[2017-11-06] MEDS: LACTULOSE SYRUP 20 GM/30 ML CUP PO SCH (07:49)
[2017-11-06 08:00] VITALS: BP 110/56; PULSE 75; RESP 20; TEMP 97.8; O2SAT 97
[2017-11-06 12:00] VITALS: BP 114/54; PULSE 76; RESP 20; TEMP 99; O2SAT 95
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
[2017-11-06 16:00] VITALS: BP 110/58; PULSE 85; RESP 20; TEMP 97.9; O2SAT 95
[2017-11-06 20:00] VITALS: BP 108/58; PULSE 87; RESP 16; TEMP 96.6; O2SAT 94
[2017-11-06] MEDS: traZODone HCL 100 MG TAB PO SCH (22:08)
[2017-11-07] VITALS: BP 108/58; PULSE 86; RESP 18; TEMP 99.4; O2SAT 91
[2017-11-07] MEDS: METHOCARBAMOL 500 MG TAB PO SCH ×3 (05:41→21:30)
[2017-11-07] MEDS: MAGNESIUM HYDROXIDE SUSP 30 ML CUP PO SCH ×2 (05:47→18:00)
[2017-11-07] MEDS: MORPHINE SULFATE 2 MG/ML INJ IV PUSH PRN (06:41)
--- NOTE | 2017-11-07 07:26 | RADRPT ---
EXAM DATE/TIME: 11/07/2017 06:18 [facility] COMPARISON: CHEST SINGLE AP, November 06, 2017, 6:25. INDICATIONS : Short of breath, left side chest pain, evaluate left side pneumothorax and chest tube MEDICAL HISTORY : left pneumothorax, left rib fractures SURGICAL HISTORY : chest tube ENCOUNTER: Subsequent ACUITY: 1 week PAIN SCORE: 7/10 LOCATION: Bilateral chest FINDINGS: Left-sided chest tube is stable. No pneumothorax is noted. Left lung consolidation is stable. Left-si ded rib fractures are stable. The heart is stable. The right lung is clear. CONCLUSION: No pneumothorax noted. Stable left lung consolidation Vishal Campos MD on November 07, 2017 at 7:23 Board Certified Radiologist. This report was verified electronically.
[2017-11-07 08:00] VITALS: BP 111/56; PULSE 80; RESP 20; TEMP 99.3; O2SAT 94
[2017-11-07] MEDS: LACTULOSE SYRUP 20 GM/30 ML CUP PO SCH (09:00)
[2017-11-07] MEDS: ENOXAPARIN SODIUM 30 MG/0.3 ML SYRINGE SQ SCH ×2 (09:21→21:00)
[2017-11-07] MEDS: GABAPENTIN 100 MG CAP PO SCH ×3 (09:21→18:09)
[2017-11-07] MEDS: DOCUSATE SODIUM 50 MG/SENNA 8.6 MG TAB PO SCH ×2 (09:21→21:00)
[2017-11-07] MEDS: LIDOCAINE HCL 5% PATCH T-DERMAL SCH (09:22)
[2017-11-07 12:00] VITALS: BP 105/55; PULSE 82; RESP 19; TEMP 98.1; O2SAT 95
[2017-11-07] MEDS ORDERED: METH500T3 PO (12:27)
[2017-11-07] MEDS ORDERED: PERI PO (12:27)
[2017-11-07] MEDS ORDERED: PERC5TAB12 PO (12:27)
--- NOTE | 2017-11-07 14:23 | RADRPT ---
EXAM DATE/TIME: 11/07/2017 13:56 [facility] COMPARISON: CHEST SINGLE AP, November 07, 2017, 6:18. INDICATIONS : Post chest tube removal. MEDICAL HISTORY : None. SURGICAL HISTORY : Chest tube ENCOUNTER: Subsequent ACUITY: 2 weeks PAIN SCORE: 7/10 LOCATION: Left chest FINDINGS: There is been interval left thoracostomy tube removal. There is about 15 mm of left apical pneumothor ax with increase in pleural effusion as well. Dense consolidative change present in the left base and left perihilar region. Right lung remains grossly clear. CONCLUSION: A thoracostomy tube removal with development of small left apical pneumothorax. Slight worsening in a eration. Cole Morel MD on November 07, 2017 at 14:14 Board Certified Radiologist. This report was verified electronically.
[2017-11-07 16:00] VITALS: BP 120/59; PULSE 78; RESP 20; TEMP 100.1; O2SAT 98
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
[2017-11-07] MEDS: traZODone HCL 100 MG TAB PO SCH (21:00)
[2017-11-07] MEDS: CALCIUM CARBONATE 500 MG CHEWABLE TAB PO PRN (21:44)
== END 2017-11-07 21:38 | disposition home or self-care (01) | DRG 208 ==
LOC: NEPI 03:46 → EDBD 04:13 → NEDA 04:13 → N03A 04:51 → N07B 10-28 11:47
PROVIDERS: ADMIT Surgery Trauma Surgery; ATTEND Surgery Trauma Surgery
PROC: 0BH17EZ Insertion of Endotracheal Airway into Trachea, Via Natural or Artificial Opening (ICD-10-PCS; principal; 2017-10-26)
PROC: 5A1935Z Respiratory Ventilation, Less than 24 Consecutive Hours (ICD-10-PCS; 2017-10-26)
PROC: 0W9B30Z Drainage of Left Pleural Cavity with Drainage Device, Percutaneous Approach (ICD-10-PCS; 2017-10-26)
PROC: 0W9930Z Drainage of Right Pleural Cavity with Drainage Device, Percutaneous Approach (ICD-10-PCS; 2017-10-26)
DX: S27.2XXA Traumatic hemopneumothorax, initial encounter (principal); J96.90 Respiratory failure, unspecified, unspecified whether with hypoxia or hypercapnia; S27.322A Contusion of lung, bilateral, initial encounter; S22.43XA Multiple fractures of ribs, bilateral, initial encounter for closed fracture; T79.7XXA Traumatic subcutaneous emphysema, initial encounter; V23.4XXA Motorcycle driver injured in collision with car, pick-up truck or van in traffic accident, initial encounter; Y92.410 Unspecified street and highway as the place of occurrence of the external cause
CPT/HCPCS: 31500; 32551; 36600; 43753; 51702; 70450; 71045; 71260; 72125; 72129; 72132; 72170; 74177; 80048; 80053; 82805; 83735; 84100; 85007; 85025; 85027; 85610; 85730; 86850; 86900; 86901; 87641; 90471; 93005; 94002; 94003; 94150; 94640; 94664; 94667; 94668; 96374; 96375; 99291; G0390; J0131; J1650; J1885; J2250; J2270; J3010; J7030; Q9967